=== PATIENT | female | born 1965 | race Caucasian/White ===

== ENCOUNTER 2020-01-31 02:20 | Emergency (ER) | payer SELFPAY ==
[~2020-01-31] VITALS: Ht 157.5 cm; Wt 68.3 kg
[2020-01-31 03:41] VITALS: BP 154/81
[2020-01-31] MEDS ORDERED: PREDNISONE 20MG TABLET PO ONE (04:00)
[2020-01-31] MEDS ORDERED: ACETAMINOPHEN 325MG TABLET PO ONE (04:00)
[2020-01-31] MEDS ORDERED: ALBUTEROL (0.083%) 2.5MG/3ML NEB HHN ONE (04:00)
== END 2020-01-31 05:39 | disposition home or self-care (01) ==
LOC: ER 02:20
DX: J06.9 Acute upper respiratory infection, unspecified (principal); Z90.710 Acquired absence of both cervix and uterus; Z88.0 Allergy status to penicillin
CPT/HCPCS: 71045; 99283; J7512; Z7610

== ENCOUNTER 2022-11-18 06:27 | Emergency (ER) | payer MEDICAID ==
[~2022-11-18] VITALS: Ht 152.4 cm; Wt 81.3 kg
[~2022-11-18 06:27] MED LIST: METF-414 PO
[2022-11-18 06:54] VITALS: BP 158/91
[2022-11-18] MEDS ORDERED: KETOROLAC 30MG/ML VIAL IV STA (07:09)
[2022-11-18] MEDS ORDERED: METOCLOPRAMIDE HCL 10MG/2ML VIAL IV ONE (07:15)
[2022-11-18] MEDS ORDERED: SODIUM CHLORIDE 0.9% 1,000 ML IV ONE (07:15)
[2022-11-18 09:56] LABS: BASOPHILS % 0.3 % (0.0-2.0); EOSINOPHILS % 0.7 % (0.0-5.0); HEMATOCRIT. 37.7 % (36.0-48.0); HEMOGLOBIN. 12.9 g/dL (12.0-16.0); MEAN CORPUSCULAR HEMOGLOBIN 28.9 pg (28.0-32.0); MEAN CORPUSCULAR VOLUME 84.7 fL (81.0-99.0); MEAN PLATELET VOLUME 8.2 fl (7.4-10.4); MONOCYTES % 3.5 % (2.0-8.0); NEUTROPHILS % 81.5 % (40.0-76.0); PLATELET 329 x1000/uL (130-400); RED BLOOD CELL COUNT 4.45 mill/uL (4.2-5.4); RED CELL DISTRIBUTION WIDTH 13.6 % (11.6-14.6)
[2022-11-18 10:00] LABS: CHLORIDE 99 mEq/L (98-107)
[2022-11-18 10:04] LABS: PROTHROMBIN TIME 10.6 sec (9.6-11.0)
[2022-11-18] MEDS ORDERED: KETOROLAC 30MG/ML VIAL IV NR (13:45)
[2022-11-18] MEDS ORDERED: METOCLOPRAMIDE HCL 10MG/2ML VIAL IV NR (13:45)
[2022-11-18] MEDS ORDERED: IBUP-2028 MT (14:28)
== END 2022-11-18 15:45 | disposition home or self-care (01) ==
LOC: ER 06:27
DX: E11.65 Type 2 diabetes mellitus with hyperglycemia (principal); I10 Essential (primary) hypertension; Z79.84 Long term (current) use of oral hypoglycemic drugs
CPT/HCPCS: 36415; 80053; 85025; 85610; 96361; 96374; 96375; 99284; J1885; J2765; J7030; Z7610

== ENCOUNTER 2023-01-15 22:44 | Emergency (ER) | payer MEDICAID ==
[~2023-01-15] VITALS: Ht 165.1 cm; Wt 87.0 kg
[~2023-01-15 22:44] MED LIST changes: +IBUP-2028 MT
[2023-01-15] MEDS ORDERED: VISCOUS LIDOCAINE 2% 15 ML UDC PO STA (22:46)
[2023-01-15] MEDS ORDERED: MAGNESIUM/ALUMINUM HYDROXIDE/SIMETHICONE 30ML UDC PO STA (22:46)
[2023-01-15] MEDS ORDERED: ONDANSETRON HCL 4MG/2ML INJ IV STA (22:46)
[2023-01-15] MEDS ORDERED: PANTOPRAZOLE SODIUM 40 MG/VIAL IV STA (22:46)
[2023-01-15] MEDS ORDERED: SODIUM CHLORIDE 0.9% 1,000 ML IV ONE (23:00)
[2023-01-16] VITALS: BP 159/82
[2023-01-16 00:08] LABS: BASOPHILS % 0.1 % (0.0-2.0); EOSINOPHILS % 1.7 % (0.0-5.0); HEMOGLOBIN. 13.2 g/dL (12.0-16.0); LYMPHOCYTES % 13.2 % (20.0-50.0); MEAN CORPUSCULAR HEMOGLOBIN 28.7 pg (28.0-32.0); MEAN CORPUSCULAR VOLUME 84.6 fL (81.0-99.0); MONOCYTES % 5.8 % (2.0-8.0); NEUTROPHILS % 79.2 % (40.0-76.0); PLATELET 362 x1000/uL (130-400); RED BLOOD CELL COUNT 4.61 mill/uL (4.2-5.4); RED CELL DISTRIBUTION WIDTH 13.3 % (11.6-14.6)
[2023-01-16 00:15] LABS: CHLORIDE 102 mEq/L (98-107)
[2023-01-16 00:18] LABS: PROTHROMBIN TIME 10.5 sec (9.6-11.0)
[2023-01-16] MEDS ORDERED: PROT40 MT (00:53)
[2023-01-16] MEDS ORDERED: ONDA4TAB50 MT (00:53)
== END 2023-01-16 01:46 | disposition home or self-care (01) ==
LOC: ER 22:44
DX: R11.2 Nausea with vomiting, unspecified (principal); E11.65 Type 2 diabetes mellitus with hyperglycemia; I10 Essential (primary) hypertension; Z88.0 Allergy status to penicillin; Z13.9 Encounter for screening, unspecified
CPT/HCPCS: 36415; 80053; 83690; 85025; 85610; 96361; 96374; 96375; 99284; C9113; J2405; J7030; Z7610

== ENCOUNTER 2023-09-25 15:17 | Emergency (ER) | payer MEDICAID, OTHER ==
[~2023-09-25] VITALS: Ht 162.6 cm; Wt 82.0 kg
[~2023-09-25 15:17] MED LIST changes: +LEVO-65 MT; +ONDA4TAB50 MT; +PROT40 MT
[2023-09-25 15:19] VITALS: O2SAT 99
[2023-09-25] MEDS ORDERED: KETOROLAC 15MG/ML VIAL IM ONE (16:00)
[2023-09-25] MEDS ORDERED: NAPR-1176 MT (16:55)
[2023-09-25 17:37] VITALS: BP 147/71; PULSE 84; RESP 15; TEMP 98.6
== END 2023-09-25 17:38 | disposition home or self-care (01) ==
LOC: ER 15:17
DX: M25.561 Pain in right knee (principal); I10 Essential (primary) hypertension; E78.00 Pure hypercholesterolemia, unspecified; E11.9 Type 2 diabetes mellitus without complications; Z88.0 Allergy status to penicillin
CPT/HCPCS: 73564; 96372; 99283; J1885; Z7610